=== PATIENT | female | born 1980 ===

== ENCOUNTER → 2016-11-24 | Outpatient (CLI) | payer BC ==
[2016-11-24 13:41] LABS: ESTIMATED AVERAGE GLUCOSE 146 mg/dl; HA1C FLAG Normal (Normal)
[2016-11-24 13:48] LABS: RATIO 58.5 mcg/mg (0-30.0)
[2016-11-24 14:26] LABS: ALT/SGPT 56 U/L (12-78); BLOOD UREA NITROGEN 9 mg/dl (7-18); BUN/CREATININE RATIO 12.1 (10-20); CALCIUM 9.1 mg/dl (8.5-10.1); CARBON DIOXIDE 25 mmol/L (21-32); CHLORIDE 105 mmol/L (98-107); CREATININE 0.76 mg/dl (0.60-1.20); GLUCOSE 213 mg/dl (70-99); POTASSIUM 4.4 mmol/L (3.5-5.1); SODIUM 137 mmol/L (136-145)
[2016-11-24 14:38] LABS: CHOLESTEROL 202 mg/dl (0-200); CHOLESTEROL/HDL RATIO 6.5; HDL CHOLESTEROL 31 mg/dl; TRIGLYCERIDES 486 mg/dl (0-150)
== END | disposition home or self-care (01) ==
LOC: C.LABPBG 07:32
PROVIDERS: ATTEND Family Medicine
DX: E11.9 Type 2 diabetes mellitus without complications (principal); E03.9 Hypothyroidism, unspecified; E78.1 Pure hyperglyceridemia

== ENCOUNTER → 2017-07-16 | Outpatient (CLI) | payer BC ==
[2017-07-16 13:37] LABS: HEMOGLOBIN A1C 6.3 % (4.5-5.6)
[2017-07-16 15:21] LABS: ALT/SGPT 41 U/L (12-78); BLOOD UREA NITROGEN 12 mg/dl (7-18); CALCIUM 9.2 mg/dl (8.5-10.1); CARBON DIOXIDE 26 mmol/L (21-32); CREATININE 0.74 mg/dl (0.60-1.20); GLUCOSE 176 mg/dl (70-99); POTASSIUM 4.4 mmol/L (3.5-5.1); SODIUM 136 mmol/L (136-145)
[2017-07-16 15:32] LABS: CHOLESTEROL 204 mg/dl (0-200); LDL CHOLESTEROL CALCULATED 116 mg/dl
== END | disposition home or self-care (01) ==
LOC: C.LABPBG 09:40
PROVIDERS: ATTEND Family Medicine
DX: E11.9 Type 2 diabetes mellitus without complications (principal); E03.9 Hypothyroidism, unspecified; E78.1 Pure hyperglyceridemia

== ENCOUNTER → 2017-10-23 | Outpatient (CLI) | payer BC ==
[2017-10-24 07:38] LABS: HEMOGLOBIN A1C 5.4 % (4.5-5.6)
== END | disposition home or self-care (01) ==
LOC: C.LABPBG 15:25
PROVIDERS: ATTEND Nurse Practitioner Family
DX: E10.9 Type 1 diabetes mellitus without complications (principal)